=== PATIENT | male | born 1965 | race Two or more races ===

== ENCOUNTER 2021-07-23 16:13 | Emergency (ER) | payer MEDICAID ==
[~2021-07-23] VITALS: Ht 165.1 cm; Wt 65.3 kg
--- NOTE | 2021-07-23 16:13 | NUR ---
PT [address] FOR ETOH. PT IS AAOX4, DENIES SI/HI. NOT IN RESPIRATORY DISTRESS, V/S STABLE, KEPT RESTED AND COMFORTABLE. WILL CONTINUE TO MONITOR.
--- NOTE | 2021-07-23 17:50 | NUR ---
URINE COLLECTED AND SENT TO THE LAB
[2021-07-23 18:09] LABS: BASOPHILS % (AUTO) 0.2 % (0.0-2.0); EOSINOPHILS % (AUTO) 0.1 % (0.0-6.0); HEMATOCRIT 44 % (39-51); LYMPHOCYTES % (AUTO) 7.7 % (20.0-44.0); MEAN CORPUSCULAR HGB CONC 34 g/dl (31.0-36.0); MEAN CORPUSCULAR VOLUME 93 fL (80-96); MONOCYTES # (AUTO) 1.7 K/uL (0.1-1.30); MONOCYTES % (AUTO) 13.5 % (2.0-12.0); NEUTROPHILS # (AUTO) 9.8 K/uL (1.8-8.9); NEUTROPHILS % (AUTO) 78.5 % (43.0-81.0); PLATELET COUNT (AUTO) 150 K/uL (150-450); RED BLOOD CELL COUNT(AUTO) 4.73 MIL/uL (4.5-6.0); WHITE BLOOD COUNT (AUTO) 12.5 K/uL (4.3-11.0)
[2021-07-23 18:13] LABS: BILIRUBIN,URINE SMALL (NEGATIVE); COLOR,URINE YELLOW (YELLOW); LEUKOCYTE ESTERASE ,URINE Trace (NEGATIVE); NITRITE, URINE Negative (NEGATIVE); PH,URINE 5.5 (5.0-8.0); PROTEIN,URINE 100 mg/dl (NEGATIVE); UGLUCOSE Negative (NEGATIVE); UROBILINOGEN,URINE 0.2 EU/dL (0.2)
[2021-07-23 18:16] LABS: CALCIUM, SERUM 8.4 mg/dL (8.5-10.1); CARBON DIOXIDE 21 mmol/L (21-32); CHLORIDE 104 mmol/L (98-107); CREATININE 1.5 mg/dL (0.6-1.3); GLUCOSE 89 mg/dL (74-106); POTASSIUM 3.8 mmol/L (3.5-5.1); SODIUM SERUM 138 mmol/L (136-145); UREA NITROGEN, BLOOD 16 mg/dL (7-18)
[2021-07-23 18:16] LABS: BACTERIA,URINE Few /HPF (None Seen); SQUAMOUS EPITHELIAL CELL,UR Few /HPF (None Seen)
[2021-07-23 18:22] LABS: ALANINE AMINOTRANSFERASE 205 U/L (12-78); ALBUMIN 3.9 g/dL (3.4-5.0); ALKALINE PHOSPHATASE 80 U/L (46-116); ASPARTATE AMINOTRANSFERASE 758 U/L (15-37); BILIRUBIN,DIRECT 0.3 mg/dL (0.0-0.2); BILIRUBIN,TOTAL 0.8 mg/dL (0.2-1.0); TOTAL PROTEIN, SERUM 8.2 g/dL (6.4-8.2)
[2021-07-23 18:23] LABS: ACETAMINOPHEN < 2 ug/ml (10-30); ALCOHOL, BLOOD < 3 mg/dL (0-0)
--- NOTE | 2021-07-23 21:07 | NUR ---
COVID SWAB COLLECETED AND SENT TO LAB
--- NOTE | 2021-07-24 02:34 | NUR ---
FACE SHEET AND CLINICALS FAXED TO [facility]
--- NOTE | 2021-07-24 05:07 | NUR ---
patient resting comfortably no complaints at this time.
--- NOTE | 2021-07-24 07:08 | NUR ---
PT GOT ACCEPTED AT [facility] BY DR ROMO, IN UNIT 1. [facility] ETA FOR TRANSPORTATION: [phone]
--- NOTE | 2021-07-24 08:00 | NUR ---
CALL FROMALESSANDRO OKAYED TO SEND PATIENT
--- NOTE | 2021-07-24 08:14 | NUR ---
REPORT GIVEN TO NURSE FOOTE FROM [facility]
[2021-07-24 10:12] VITALS: BP 133/85
--- NOTE | 2021-07-24 10:12 | NUR ---
REPORT GIVEN TO [facility] STAFF. THE PATIENT IS DISCHARGED TO [facility] IN STABLE CONDITION.
== END 2021-07-24 10:13 ==
LOC: ER 17:05
DX: R45.851 Suicidal ideations (principal); Z59.00 Homelessness unspecified; F20.9 Schizophrenia, unspecified; F10.10 Alcohol abuse, uncomplicated; Y90.0 Blood alcohol level of less than 20 mg/100 ml; Z20.822 Contact with and (suspected) exposure to COVID-19; R82.5 Elevated urine levels of drugs, medicaments and biological substances
CPT/HCPCS: 36415; 80048; 80076; 80143; 80307; 80320; 81001; 85025; 87426; 99285; C9803; G0480

== ENCOUNTER 2021-08-07 08:17 | Emergency (ER) | payer MEDICAID ==
[~2021-08-07] VITALS: Ht 165.1 cm; Wt 65.8 kg
--- NOTE | 2021-08-07 08:40 | NUR ---
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 PT STATES HES BEEN OFF OF HIS ANTI PSYCHOTIC MEDICATION. DENIES HI. PT IS VERBALLY RESPOPNSIVE. ADMITS TO HOMELESSNESS. STABLE VITALS. AWAITING MD VEGA. PT PLACED ON GOWN AND BELONGINGS TO SAFE LOCKER.
[2021-08-07 09:20] LABS: BASOPHILS # (AUTO) 0.1 K/uL (0.0-0.2); BASOPHILS % (AUTO) 2.3 % (0.0-2.0); EOSINOPHILS % (AUTO) 1.4 % (0.0-6.0); HEMATOCRIT 40 % (39-51); HEMOGLOBIN 13.4 g/dL (13.5-17.5); LYMPHOCYTES # (AUTO) 0.5 K/uL (0.8-4.8); LYMPHOCYTES % (AUTO) 11.5 % (20.0-44.0); MEAN CORPUSCULAR HGB CONC 34 g/dl (31.0-36.0); MEAN CORPUSCULAR VOLUME 92 fL (80-96); MONOCYTES # (AUTO) 0.4 K/uL (0.1-1.30); MONOCYTES % (AUTO) 9.4 % (2.0-12.0); NEUTROPHILS # (AUTO) 3.3 K/uL (1.8-8.9); NEUTROPHILS % (AUTO) 75.4 % (43.0-81.0); PLATELET COUNT (AUTO) 181 K/uL (150-450); RED BLOOD CELL COUNT(AUTO) 4.33 MIL/uL (4.5-6.0); WHITE BLOOD COUNT (AUTO) 4.4 K/uL (4.3-11.0)
[2021-08-07 09:29] LABS: BILIRUBIN,URINE Negative (NEGATIVE); COLOR,URINE YELLOW (YELLOW); LEUKOCYTE ESTERASE ,URINE Negative (NEGATIVE); NITRITE, URINE Negative (NEGATIVE); PH,URINE 6.5 (5.0-8.0); PROTEIN,URINE Negative (NEGATIVE); UGLUCOSE Negative (NEGATIVE); UROBILINOGEN,URINE 0.2 EU/dL (0.2)
[2021-08-07 09:33] LABS: CALCIUM, SERUM 8.1 mg/dL (8.5-10.1); CARBON DIOXIDE 30 mmol/L (21-32); CHLORIDE 104 mmol/L (98-107); CREATININE 0.8 mg/dL (0.6-1.3); GLUCOSE 93 mg/dL (74-106); POTASSIUM 3.5 mmol/L (3.5-5.1); SODIUM SERUM 140 mmol/L (136-145); UREA NITROGEN, BLOOD 12 mg/dL (7-18)
[2021-08-07 09:46] LABS: ALANINE AMINOTRANSFERASE 74 U/L (12-78); ALBUMIN 3.1 g/dL (3.4-5.0); ALCOHOL, BLOOD < 3 mg/dL (0-0); ALKALINE PHOSPHATASE 82 U/L (46-116); ASPARTATE AMINOTRANSFERASE 58 U/L (15-37); BILIRUBIN,DIRECT 0.2 mg/dL (0.0-0.2); BILIRUBIN,TOTAL 0.5 mg/dL (0.2-1.0); TOTAL PROTEIN, SERUM 7.1 g/dL (6.4-8.2)
[2021-08-07 09:47] LABS: ACETAMINOPHEN < 10 ug/ml (10-30)
--- NOTE | 2021-08-07 10:08 | NUR ---
MASTER OCEAN YACHT ISAEL SPEAKING WITH PT.
--- NOTE | 2021-08-07 10:52 | NUR ---
"SS Consult: SS consult for Suicidal. Pt. Is a 56-year-old male. Pt. demonstrates adequate insight to the reason for hospitalization. Per pt., he was brought to hospital by self-due to Suicidal Thoughts. Pt. was oriented x3, alert, and cooperative. During interview, pt. was capable of following directions, and made appropriate eye-contact. Pt.'s speech was at a normal rate. Pt.'s mood was anxious and hopeless. SW explored pt.'s Hx of mental health and substance abuse. Pt. reported Hx of depression, substance abuse [methamphetamine], Suicidal, Homicidal [no one in particular]. Pt. denied AH/VH, paranoia or delusions. SW explored pt.'s living situation. Per pt., he been homeless for 6 years. Pt. mentioned that he has gone to shelters. Per pt., he reports having no adequate support. SW explored pt.'s financial status. Per pt., he is currently not working. Pt. expressed that he would like a referral to [facility]. Plan: CHEMO referred pt. to [facility] [[address] [place] [address] FAX:[phone]] for inpatient psychiatric treatment. Patient signed homeless waiver & it was placed in the pt.'s chart. CHEMO provided pt. with homeless resources and he accepted them: Resources Provided: Year-round shelters: [facility] [address] [place], [place] [address] ; [facility] [address] [place] [address]; [facility] Sscsuhv6105 [facility] [address] Winter Shelters: [place] WHI Solution Provider: [facility] [place] Address: [address] [place], [address] # of Beds: 47 Population Served: [facility] 6 | [facility] Gloria Cortes Zeny Provider: Home at Last Address: [address] [facility], [address] # of Beds: 66 Population Served: [employer] [place] Provider: First to Serve Address: [address] [facility], [address] # of Beds: 56 Population Served: Coed Bakari [place] Provider: /Ms. Low'charles House Address: [address] [facility] [place], [address] # of Beds: 49 Population Served: Coed SPA 8 | [facility] Provider: First to Serve Address: [address] [facility]. [place], [address] # of Beds: 37 Population Served: Coed Hygiene: [place] [facility]: [address] [facility] ; [place] [facility] [address] [facility] [facility] ; [facility] 7750 [facility] [place] . Food Resources: [place] [employer] [facility] at [facility]- 5700 [facility]; Meet Each Need with Dignity ([facility]) [address] [facility]; [facility] Food Pantry 4337 [facility]; [facility] 8525 [facility]. Mental Health resources provided: [facility] [address] [place], [place] [phone] ; [facility] Mental Health Center, Inc. [address] [facility] [address], [place], [place] [phone] ; Jacy Naik [facility] Mental Health Urgent Care Center [address] [place] [address] ; [facility] [address] [place], [place] [phone] Healthcare Clinics: [facility] 6551 [facility], [address] [place]. [place] ; [facility] [address] [facility] [address] [place] [address]; [facility] [address] [place] [phone]) [phone] Counseling--Outpatient [facility] [address], [address] [place], [place] [address] (Specializes in in-depth psychotherapy for emotional distress: anxiety, depression, interpersonal conflicts, life transitions, childhood abuse) [facility] Guidance Center [address] [place] [address] (Assist with solving problem marital difficulties, separation & divorce, aging parents, & grief, chronic & terminal illness) [facility] [address] [place] [address] (Deal with loss & grief, anxiety, marital difficulties) Homebound/Mental Health Services [address]99[address] [facility] [address] [place] [address] (Provide in-home mental services to people who are incapable of leaving their homes) Organization for Needs of the Elderly Senior Service/Resource Center [address] [place] [address] [facility] [address]14 [place] [address] PSYCHIATRIC OUTPATIENT SERVICES [facility] Partial Hospitalization and Intensive Outpatient Program (Managed Care and [place] Only)[address]14 [facility] [phone] [facility] Partial Hospitalization and Outpatient Umpexmt43668 [facility] [address] [place], [place] [phone] [facility] Mental Health [place] Pel59030 [facility] [address] [place], [place] [phone] [facility] Partial Hospitalization and Outpatient Oqafymi70955 Emeli[place], [phone] Substance Abuse resources provided included: [facility] Substance Abuse Self-Helpline (SAS) ; CRI -HELP [address]97 [facility]. [place] [address] ; [facility] [address] [facility] [address] ; [facility] Rehabilitation [facility] [address] [place] [address] ; [facility] [address] [facility] [address] ; [facility] 4940 Ramesh [facility] [address] ; [facility] 909 [facility], [facility] [phone] ; [facility] Substance Abuse Helpline(SAS)[facility] ; [facility] Family Counseling ; [facility] [place]; [facility] Brilliant; Cri-Help [place]; I-ADARP Inter Agency Drug Abuse Recovery Ramesh John; [facility] [place]; [facility] [place]; [facility] [place]; [facility]'s [place], [facility]. [place]; Alcoholics Anonymous -SFV; Ql-Dmut-Rlaxbxz ; Marijuana Anonymous -SFV; Narcotics Anonymous www.na.org;"
--- NOTE | 2021-08-07 12:19 | NUR ---
PT SUSTAINED A SELF INFLICTED LACERATION TO LFA APPROX 4 INCHES, STATES HE HEARD A VOICE TELLING HIM TO DO IT. GOWNED AND PLACED ON MONITOR. 1:[address] CHRISTIAN MADE AWARE.
[2021-08-07] MEDS ORDERED: LIDOCAINE 1%-EPI 1:100,000 20 ML VIAL ONE (15:15)
[2021-08-07] MEDS ORDERED: TDAP [DIPH/PERTUSSIS/TET] 0.5 ML VIAL IM ONE ×2 (16:00→16:58)
--- NOTE | 2021-08-07 17:15 | NUR ---
CALLED TE VILLAVICENCIO ABOUT AN HOUR
[2021-08-07] MEDS ORDERED: OLANZAPINE 5 MG TABLET PO ONE (19:00)
[2021-08-07] MEDS ORDERED: OLANZAPINE 5 MG TABLET ONE (19:02)
--- NOTE | 2021-08-07 20:15 | NUR ---
PATIENT ALERT RESTING COMFORTABLY NO COMPLAINTS AT THIS TIME.
--- NOTE | 2021-08-07 23:16 | NUR ---
PATIENT ALERT AND ORIENTED NO COMPLAINTS AT THIS TIME.
--- NOTE | 2021-08-08 01:00 | NUR ---
Prema cunningham in [facility] - 08/08/21 at 0113 by JUDY charmaine pearson to [facility]
--- NOTE | 2021-08-08 02:07 | NUR ---
[facility] FOR REPORT CALL [phone] WHEN ETA IS READY CALL [phone] (NIDA) TO NOTIFY
--- NOTE | 2021-08-08 02:13 | NUR ---
BLS TRANSPO BY [facility]. VILLAVICENCIO IN 60-75 MIN
--- NOTE | 2021-08-08 02:30 | NUR ---
REPORT GIVEN TO KEVEN KANG
[2021-08-08 03:16] VITALS: BP 133/78
--- NOTE | 2021-08-08 03:16 | NUR ---
PATIENT BEING TRANSFERRED TO [facility] VIA TRANSPORTATION
== END 2021-08-08 03:18 ==
LOC: ER 08:57
DX: R45.851 Suicidal ideations (principal); R44.0 Auditory hallucinations; S51.812A Laceration without foreign body of left forearm, initial encounter; X78.8XXA Intentional self-harm by other sharp object, initial encounter; Y92.238 Other place in hospital as the place of occurrence of the external cause; Z20.822 Contact with and (suspected) exposure to COVID-19
CPT/HCPCS: 12034; 36415; 80048; 80076; 80143; 80307; 80320; 81003; 85025; 87426; 90471; 90715; 99285; C9803; J3490; G0480

== ENCOUNTER 2022-03-01 21:31 | Emergency (ER) | payer SELFPAY ==
[~2022-03-01] VITALS: Ht 160 cm; Wt 63.5 kg
--- NOTE | 2022-03-01 22:48 | NUR ---
PRESENTED TO THE ER FOR C/O SI W/ HX OF CUTTING HIMSLEF. REQUESTING VLUNTARY PSYCH ADMISSION. PT A, OX3. AMBULATORY TO THE BATHROOM WITH STEADY GAITS. URINE SAMPLE OBTAINED. COVID SWAB DONE AND SAMPLE SENT TO LAB. PT WAS GOWNED UP AND ALL BELONGINGS TAKEN AWAY. SECURITY CALLED TO WAND THE PT. SI PRECAUTION IMPLEMENTED. WILL CONT TO MONITOR
[2022-03-01 23:02] LABS: EOSINOPHILS % (AUTO) 4.5 % (0.0-6.0); HEMATOCRIT 44 % (39-51); HEMOGLOBIN 15.1 g/dL (13.5-17.5); LYMPHOCYTES # (AUTO) 2.1 K/uL (0.8-4.8); LYMPHOCYTES % (AUTO) 30.2 % (20.0-44.0); MEAN CORPUSCULAR HGB CONC 34 g/dl (31.0-36.0); MEAN CORPUSCULAR VOLUME 87 fL (80-96); MONOCYTES # (AUTO) 1.4 K/uL (0.1-1.30); MONOCYTES % (AUTO) 20.6 % (2.0-12.0); NEUTROPHILS # (AUTO) 3.1 K/uL (1.8-8.9); NEUTROPHILS % (AUTO) 44.7 % (43.0-81.0); PLATELET COUNT (AUTO) 137 K/uL (150-450); RED BLOOD CELL COUNT(AUTO) 5.09 MIL/uL (4.5-6.0); WHITE BLOOD COUNT (AUTO) 6.8 K/uL (4.3-11.0)
[2022-03-01 23:02] LABS: BILIRUBIN,URINE NEGATIVE (NEGATIVE); COLOR,URINE YELLOW (YELLOW); LEUKOCYTE ESTERASE ,URINE NEGATIVE (NEGATIVE); NITRITE, URINE NEGATIVE (NEGATIVE); PROTEIN,URINE NEGATIVE (NEGATIVE); UGLUCOSE NEGATIVE (NEGATIVE); UROBILINOGEN,URINE 0.2 EU/dL (0.2)
[2022-03-01 23:27] LABS: CALCIUM, SERUM 8.2 mg/dL (8.5-10.1); CARBON DIOXIDE 25 mmol/L (21-32); CHLORIDE 105 mmol/L (98-107); GLUCOSE 87 mg/dL (74-106); POTASSIUM 3.3 mmol/L (3.5-5.1); SODIUM SERUM 142 mmol/L (136-145); UREA NITROGEN, BLOOD 11 mg/dL (7-18)
[2022-03-01 23:32] LABS: ALANINE AMINOTRANSFERASE 196 U/L (12-78); ALCOHOL, BLOOD 49 mg/dL (0-0); ALKALINE PHOSPHATASE 122 U/L (46-116); ASPARTATE AMINOTRANSFERASE 79 U/L (15-37); BILIRUBIN,DIRECT 0.1 mg/dL (0.0-0.2); BILIRUBIN,TOTAL 0.4 mg/dL (0.2-1.0); TOTAL PROTEIN, SERUM 8.2 g/dL (6.4-8.2)
[2022-03-01 23:35] LABS: ACETAMINOPHEN < 2 ug/ml (10-30)
--- NOTE | 2022-03-02 04:29 | NUR ---
PT IS ASLEEP AND EASILY AROUSABLE, WILL CONTINUE TO MONITOR.
--- NOTE | 2022-03-02 08:00 | NUR ---
pt AA, Directable and cooperative. Breakfast given- tolerated well. Awaiting SW for consult
--- NOTE | 2022-03-02 10:00 | NUR ---
Suly BALDWINW here to see pt
[2022-03-02] MEDS ORDERED: LORAZEPAM 1 MG TABLET PO ONE (11:30)
[2022-03-02] MEDS ORDERED: LORAZEPAM 1 MG TABLET ONE (11:45)
--- NOTE | 2022-03-02 11:47 | NUR ---
SS Note: Pt. Is a 57-year-old male who demonstrates adequate insight to the reason for hospitalization. Per EMR, pt. presents to the ER for suicidal ideation with a plan to cut himself. Pt. was oriented x3, alert, and cooperative. During interview, pt. was capable of following directions and appeared unkempt. Pt.'s speech was at a normal rate and pt.'s mood was elevated. Pt. reported no hx of mental health and denies homicidal ideation. Pt. experience auditory hallucinations and visual hallucinations. Per pt., he sees people who are not there and hear voices that tells him to "bang his head." Pt. drug of choice is Crystal Meth and marijuana. The last time pt. used marijuana was last week and used Meth about 6 months ago. CHEMO explored pt.'s living situation. Per pt., he has been homeless for 2 years. Pt. has family but cannot stay with them due to his drug use. Pt. has never been to a rehab facility but refuse to go. Pt. expressed that he wants voluntary admission to a psych facility. Plan: CHEMO provided available resources and pt. accepted. CHEMO has notified MD to medicate pt. with Ativan. Per BHAVANA Sanz, CHEMO will contact Art to come clear pt. once he is stable. Resources Provided: Year-round shelters: [facility] [place] [address] [place], [place] [phone] ; [facility] [place] [address] [place] [address]; [facility] Lddcpsr8209 [facility] [address] Winter Shelters: Roland Moura Provider: [facility] [place] Address: [address] [facility] [place], [address] # of Beds: 47 Population Served: [facility] 6 | [facility] Gloria Cortes Zeny Provider: Home at Last Address: [address], # of Beds: 66 Population Served: [facility] Ripley [place] Provider: First to Serve Address: [id number] [place] [address], [address] # of Beds: 56 Population Served: Andrea [place] Provider: /Ms. Low's House Address: [address] Health System, [address] # of Beds: 49 Population Served: Coed SPA 8 | Lakeland Epps Provider: First to Serve Address: [address] French HospitalDaryl [place], [address] # of Beds: 37 Population Served: Coed Hygiene: [place] [facility]: [address] [place] ; [place] [facility] [address] [facility] [place] ; [facility] [address] [place] . Food Resources: [place] Food Pantry at [facility]- 5708 [facility]; Meet Each Need with Dignity ([facility]) [address] Park SanitariumDaryl [place]; [facility] Food Pantry 3652 [facility]; [facility] 8536 [facility]. Mental Health resources provided: [facility] [address] [place], [place] [phone] ; [facility] Mental Health Center, Inc. [address]99 [facility] [address], [place], [place] [phone] ; [place] [facility] Mental Health Urgent Care Center [address] DrOakham, [place] [phone] ; [facility] [address] [place], [place] [phone] Healthcare Clinics: [facility] 6551 [facility], [address] [place]. [place] ; [facility] [address] [facility] [address] [place] [address]; [facility] [address] [facility]. [place] [phone] Counseling--Outpatient [facility] [address] [facility], [address] [place], [place] [address] (Specializes in in-depth psychotherapy for emotional distress: anxiety, depression, interpersonal conflicts, life transitions, childhood abuse) [facility] [address] [place] [address] (Assist with solving problem marital difficulties, separation & divorce, aging parents, & grief, chronic & terminal illness) [facility] [address] [place] [address] (Deal with loss & grief, anxiety, marital difficulties) Homebound/Mental Health Services 205[address] [facility] [address] [place] [address] (Provide in-home mental services to people who are incapable of leaving their homes) Organization for Needs of the Elderly Senior Service/Resource Center [address] Malika RuizIncline [place], [place] [phone] [facility] [address] [place], [place] [address] PSYCHIATRIC OUTPATIENT SERVICES [facility] Partial Hospitalization and Intensive Outpatient Program (Managed Care and [place] Only)[address]98 [facility] [phone] [facility] Partial Hospitalization and Outpatient Xjdrrye70457 DeltavilleHugh [facility]. [address] [place], [place] [phone] [facility]ly [facility] Mental Health Sadorus Ckz83013 Malika [facility] [address] [place], [place] [phone] [facility] Partial Hospitalization and Outpatient Jckdpkv95970 [place], [phone] Substance Abuse resources provided included: [facility] Substance Abuse Self-Helpline ([facility]) ; CRI -HELP [address] Mic[facility]. [place] [address] ; [facility] 55785 [facility] [address] ; [facility] 795[address] Deltav[place] BlvdGood Samaritan Hospital [address] ; [facility] [address] [facility] [address] ; [facility] 4940 Ramesh John [facility] [address] ; [facility] [address] [facility] [phone] ; [facility] Substance Abuse Helpline([facility] ; [facility] Family Counseling ; [facility] [place]; [facility] [place]; Cri-Help [place]; I-ADARP Inter [place] Drug Abuse Recovery Ramesh John; [facility] [place]; [place] [facility] [place]; [facility] [place]; [facility]'s Sadorus, Inc. [place]; Alcoholics Anonymous -SFV; Guille ; Marijuana Anonymous -SFV; Narcotics Anonymous www.na.org;
--- NOTE | 2022-03-02 13:42 | NUR ---
Per Umu, Art will be coming to clear pt. Pt. was given 1mg of Ativan. Per pt., he feels better but is still suicidal with a plan of cutting himself.
--- NOTE | 2022-03-02 14:00 | NUR ---
PET Art Here to see patient
--- NOTE | 2022-03-02 15:03 | NUR ---
Patient discharged in stable condition. Written and verbal after care instructions given. Patient verbalizes understanding of instruction.
[2022-03-02 15:05] VITALS: BP 117/78
== END 2022-03-02 15:06 | disposition home or self-care (01) ==
LOC: ER 21:37
DX: R45.851 Suicidal ideations (principal); Z59.00 Homelessness unspecified; Z20.822 Contact with and (suspected) exposure to COVID-19; F17.200 Nicotine dependence, unspecified, uncomplicated
CPT/HCPCS: 36415; 80048; 80076; 80143; 80307; 80320; 81003; 85025; 87426; 99285; C9803; G0480

== ENCOUNTER 2022-09-24 02:51 | Emergency (ER) | payer MEDICAID ==
[~2022-09-24] VITALS: Ht 160 cm; Wt 63.5 kg
--- NOTE | 2022-09-24 05:00 | NUR ---
PT TO ER C/O SI, REQUESTING MEDICAL CLEARANCE FOR [facility]. NO IMMEDIATE SIGNS OF DISTRESS NOTED. PT VITAL SIGNS STABLE. SI PRECUATIONS IMPLEMENTED. WILL CONT TO MONITOR PT.
[2022-09-24 07:16] LABS: BILIRUBIN,URINE NEGATIVE (NEGATIVE); COLOR,URINE YELLOW (YELLOW); LEUKOCYTE ESTERASE ,URINE NEGATIVE (NEGATIVE); NITRITE, URINE NEGATIVE (NEGATIVE); PH,URINE 6.5 (5.0-8.0); PROTEIN,URINE NEGATIVE (NEGATIVE); UGLUCOSE NEGATIVE (NEGATIVE); UROBILINOGEN,URINE 0.2 EU/dL (0.2)
[2022-09-24 07:25] LABS: CALCIUM, SERUM 9.1 mg/dL (8.5-10.1); CARBON DIOXIDE 27 mmol/L (21-32); CHLORIDE 102 mmol/L (98-107); CREATININE 1.1 mg/dL (0.6-1.3); GLUCOSE 108 mg/dL (74-106); SODIUM SERUM 137 mmol/L (136-145); UREA NITROGEN, BLOOD 11 mg/dL (7-18)
[2022-09-24 07:26] LABS: ALANINE AMINOTRANSFERASE 68 U/L (12-78); ALBUMIN 4.1 g/dL (3.4-5.0); ALKALINE PHOSPHATASE 75 U/L (46-116); ASPARTATE AMINOTRANSFERASE 51 U/L (15-37); BASOPHILS % (AUTO) 0.6 % (0.0-2.0); BILIRUBIN,DIRECT 0.2 mg/dL (0.0-0.2); BILIRUBIN,TOTAL 0.6 mg/dL (0.2-1.0); EOSINOPHILS % (AUTO) 2.6 % (0.0-6.0); HEMATOCRIT 45 % (39-51); HEMOGLOBIN 15.3 g/dL (13.5-17.5); LYMPHOCYTES # (AUTO) 1.1 K/uL (0.8-4.8); LYMPHOCYTES % (AUTO) 22.1 % (20.0-44.0); MEAN CORPUSCULAR HGB CONC 34 g/dl (31.0-36.0); MEAN CORPUSCULAR VOLUME 89 fL (80-96); MONOCYTES # (AUTO) 0.8 K/uL (0.1-1.30); MONOCYTES % (AUTO) 15.3 % (2.0-12.0); NEUTROPHILS % (AUTO) 59.4 % (43.0-81.0); PLATELET COUNT (AUTO) 134 K/uL (150-450); RED BLOOD CELL COUNT(AUTO) 5.06 MIL/uL (4.5-6.0); TOTAL PROTEIN, SERUM 8.2 g/dL (6.4-8.2)
[2022-09-24 07:29] LABS: ACETAMINOPHEN 0 ug/ml (10-30); ALCOHOL, BLOOD < 3 mg/dL (0-0)
--- NOTE | 2022-09-24 08:15 | NUR ---
COVID SWAB COLLECTED AND SENT TO LAB
--- NOTE | 2022-09-24 09:06 | NUR ---
CLINICALS FAXED TO [facility].
--- NOTE | 2022-09-24 14:58 | NUR ---
REFAXED FACESHEET TO [facility].
--- NOTE | 2022-09-24 16:08 | NUR ---
Accepted to: Bonnie CANTRELL Accepted by: MD Yaya Hernandez Report to: [phone]
--- NOTE | 2022-09-24 16:09 | NUR ---
PER SEGUNDO PT ACCEPTED AT [facility] UNDER THE CARE OF DR DEMETRIUS VILLAVICENCIO 4227
--- NOTE | 2022-09-24 16:10 | NUR ---
attempted to give report but no response; left voice message
--- NOTE | 2022-09-24 16:26 | NUR ---
[facility]. Written and verbal after care instructions given. Patient verbalizes understanding of instruction. Addendum: 09/24/22 at 1627 by MADISON all belongings returned to pt
[2022-09-24 16:27] VITALS: BP 127/72
== END 2022-09-24 16:28 ==
LOC: ER 02:52
DX: R45.851 Suicidal ideations (principal); Z20.822 Contact with and (suspected) exposure to COVID-19; Z59.00 Homelessness unspecified
CPT/HCPCS: 99285; 85025; 80048; 80076; 81003; 36415; 87426; 80143; 80320; 80307; C9803; G0480

== ENCOUNTER 2022-10-03 11:20 | Emergency (ER) | payer MEDICAID ==
[~2022-10-03] VITALS: Ht 160 cm; Wt 62.6 kg
--- NOTE | 2022-10-03 11:38 | NUR ---
CAME FOR [facility]UNT[facility] PSYCH [facility] TO [facility]. SI PLAN "RUN TO TRAFFIC". PT AMBULATED TO ROOM WITH STEADY GAIT. AAOX4, VSS.
--- NOTE | 2022-10-03 11:39 | NUR ---
COVID SWAB COLLECTED AND SENT TO LAB.
--- NOTE | 2022-10-03 11:44 | NUR ---
PT UNABLE TO GIVE URINE SAMPLE AT THIS TIME.
[2022-10-03 11:55] LABS: BASOPHILS % (AUTO) 0.4 % (0.0-2.0); EOSINOPHILS % (AUTO) 1.2 % (0.0-6.0); HEMATOCRIT 44 % (39-51); LYMPHOCYTES # (AUTO) 1.8 K/uL (0.8-4.8); LYMPHOCYTES % (AUTO) 24.2 % (20.0-44.0); MEAN CORPUSCULAR HGB CONC 34 g/dl (31.0-36.0); MEAN CORPUSCULAR VOLUME 89 fL (80-96); MONOCYTES % (AUTO) 13.9 % (2.0-12.0); NEUTROPHILS # (AUTO) 4.4 K/uL (1.8-8.9); NEUTROPHILS % (AUTO) 60.3 % (43.0-81.0); PLATELET COUNT (AUTO) 122 K/uL (150-450); RED BLOOD CELL COUNT(AUTO) 4.94 MIL/uL (4.5-6.0); WHITE BLOOD COUNT (AUTO) 7.3 K/uL (4.3-11.0)
[2022-10-03 12:16] LABS: CALCIUM, SERUM 8.9 mg/dL (8.5-10.1); CARBON DIOXIDE 25 mmol/L (21-32); CHLORIDE 100 mmol/L (98-107); CREATININE 1.1 mg/dL (0.6-1.3); GLUCOSE 99 mg/dL (74-106); POTASSIUM 3.7 mmol/L (3.5-5.1); SODIUM SERUM 136 mmol/L (136-145); UREA NITROGEN, BLOOD 9 mg/dL (7-18)
--- NOTE | 2022-10-03 12:26 | NUR ---
URINE SAMPLE COLLECTED AND SENT TO LAB.
[2022-10-03 12:29] LABS: ALANINE AMINOTRANSFERASE 61 U/L (12-78); ALBUMIN 4.1 g/dL (3.4-5.0); ALKALINE PHOSPHATASE 82 U/L (46-116); ASPARTATE AMINOTRANSFERASE 51 U/L (15-37); BILIRUBIN,DIRECT 0.2 mg/dL (0.0-0.2); BILIRUBIN,TOTAL 0.9 mg/dL (0.2-1.0)
[2022-10-03 12:36] LABS: ACETAMINOPHEN < 10 ug/ml (10-30); ALCOHOL, BLOOD < 3 mg/dL (0-0)
[2022-10-03 12:54] LABS: BILIRUBIN,URINE NEGATIVE (NEGATIVE); COLOR,URINE YELLOW (YELLOW); LEUKOCYTE ESTERASE ,URINE NEGATIVE (NEGATIVE); NITRITE, URINE NEGATIVE (NEGATIVE); PROTEIN,URINE NEGATIVE (NEGATIVE); UGLUCOSE NEGATIVE (NEGATIVE); UROBILINOGEN,URINE 0.2 EU/dL (0.2)
--- NOTE | 2022-10-03 16:52 | NUR ---
PT ACCEPTED AT [facility] PER ALEXANDRIA, RN SUP AT [facility]. TRANSFER AFTER 183; CALL JAMEEL FOR TRANSPORT ([phone])
[2022-10-03 18:39] VITALS: BP 140/70
--- NOTE | 2022-10-03 18:39 | NUR ---
PATIENT PICKED UP BY [facility] UN[address] IN STABLE CONDITION. ALL BELONGINGS BROUGHT WITH THE PATIENT. CLINICALS PROVIDED TO EMT'S TO BE GIVEN TO [facility] NURSE.
== END 2022-10-03 18:41 ==
LOC: ER 11:39
DX: R45.851 Suicidal ideations (principal); Z59.00 Homelessness unspecified
CPT/HCPCS: 99285; 85025; 80048; 80076; 81003; 36415; 87426; 80143; 80320; 80307; C9803; G0480